=== PATIENT | female | born 2000 | race Caucasian/White ===

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

== ENCOUNTER 2022-01-23 12:01 | Emergency (ER) | payer OTHER ==
[~2022-01-23] VITALS: Ht 157.5 cm; Wt 85.3 kg
[~2022-01-23 12:01] MED LIST changes: +CEPH-588 PO; +NAPR-54 PO
[2022-01-23 12:05] VITALS: BP 136/67
--- NOTE | 2022-01-23 12:10 | NUR ---
Patient ambulated with steady gait to bed 2.
[2022-01-23] MEDS ORDERED: LACT-103 PO (12:48)
[2022-01-23] MEDS ORDERED: GLYPS RC (12:48)
--- NOTE | 2022-01-23 13:05 | NUR ---
22/F BIB SELF WITH C/O LOWER ABDOMINAL PAIN X1 WEEK, STATES SHE HAS BEEN CONSTIPATED, REPORTS TAKING OTC LAXATIVES BUT STATES SHE HAS NOT FOUND RELIEF. PT REPORTS LOW ABDOMEN PAIN 10/10, CRAMPING/INTERMITTENT, RADIATING TO LOW BACK. REPORTS NAUSEA, DENIES FEVERS, CHILLS, URINARY SYMPTOMS. PATIENT STATES LAST BOWEL MOVEMENT THIS MORNING "STEFANO/SOFT." REPORTS EXERCISING AND ADEQUATE FIBER INTAKE WITHOUT RELIEF TO SYMPTOMS. ABD SOFT/ROUND/NONTENDER. BED LOCKED IN LOWEST POSITION, SIDE RAILS X 1. MEDHX: ANXIETY MEDS: ZOLOFT ALLERGIES: NKA
--- NOTE | 2022-01-23 13:07 | NUR ---
Patient discharged with v/s stable. Written and verbal after care instructions given and explained about Constipation (Adult). Patient alert, oriented and verbalized understanding of instructions. Ambulatory with steady gait. All questions addressed prior to discharge. ID band removed. Patient advised to follow up with PMD. Rx of GLYCERIN, LACTUOLOSE given. Patient educated on indication of medication including possible reaction and side effects. Opportunity to ask questions provided and answered.
== END 2022-01-23 13:07 | disposition home or self-care (01) ==
LOC: MED 12:01
DX: K59.00 Constipation, unspecified (principal); Z79.899 Other long term (current) drug therapy
CPT/HCPCS: 81002; 81025; 99283

== ENCOUNTER 2022-05-23 23:38 | Emergency (ER) | payer OTHER ==
[~2022-05-23] VITALS: Ht 157.5 cm; Wt 77.1 kg
[~2022-05-23 23:38] MED LIST changes: +GLYPS RC; +LACT-103 PO
[2022-05-23 23:40] VITALS: BP 138/90
--- NOTE | 2022-05-23 23:43 | NUR ---
TO LOBBY A/W BED AMBULATORY
--- NOTE | 2022-05-24 00:14 | NUR ---
PT TAKEN TO BED 2
--- NOTE | 2022-05-24 00:52 | NUR ---
Dr. Lanier examining patient.
[2022-05-24] MEDS ORDERED: MIRABULK PO (01:06)
[2022-05-24] MEDS ORDERED: LACT10SO86 PO (01:06)
--- NOTE | 2022-05-24 01:13 | NUR ---
X-Ray at bedside.
[2022-05-24 01:18] LABS: APPEARANCE,URINE CLEAR (CLEAR); COLOR,URINE YELLOW (YELLOW)
[2022-05-24 01:19] LABS: BILIRUBIN,URINE NEGATIVE (NEGATIVE); BLOOD, URINE 1+ (NEGATIVE); LEUKOCYTE ESTERASE ,URINE NEGATIVE (NEGATIVE); NITRITE, URINE NEGATIVE (NEGATIVE); UGLUCOSE NEGATIVE (NEGATIVE)
[2022-05-24 01:20] LABS: RBC,URINE 0-5 /HPF (0-5); WBC,URINE 0-5 /HPF (0-5)
--- NOTE | 2022-05-24 02:22 | NUR ---
AT TIME OF DISCHARGE, PT REPORTS STILL HAVING ABDOMINAL AND FEELING THE NEED TO DEFACTE BUT CANNOT. DISCUSSED WITH PATIENT OPTION OF ENEMA. DR. SZYMANSKI MADE AWARE.
[2022-05-24] MEDS: SODIUM PHOSPHATE 118 ML ENEM RC ONE (02:28)
[2022-05-24 02:50] VITALS: BP 127/82
--- NOTE | 2022-05-24 02:50 | NUR ---
Patient discharged with v/s stable. Written and verbal after care instructions given and explained. Patient alert, oriented and verbalized understanding of instructions. Ambulatory with steady gait. All questions addressed prior to discharge. ID band removed. Patient advised to follow up with PMD. Rx of Miralax and Lactulose given. Patient educated on indication of medication including possible reaction and side effects. Opportunity to ask questions provided and answered.
== END 2022-05-24 02:50 | disposition home or self-care (01) ==
LOC: MED 23:38
DX: K59.00 Constipation, unspecified (principal); Z79.899 Other long term (current) drug therapy
CPT/HCPCS: 74018; 81001; 81025; 99284; Q0092

== ENCOUNTER 2022-11-12 08:38 | Emergency (ER) | payer OTHER ==
[~2022-11-12] VITALS: Ht 157.5 cm; Wt 78.0 kg
[~2022-11-12 08:38] MED LIST changes: +LACT10SO86 PO; +MIRABULK PO
[2022-11-12 08:43] VITALS: BP 140/92
--- NOTE | 2022-11-12 08:45 | NUR ---
22F PRESENTS TO ED WITH C/O LEFT ARM PAIN AND LEFT SHOULDER PAIN X 1DAY. PT REPORTS A CONSTANT, ACHING LIKE, 8/10 PAIN THAT STARTS ON LEFT ARM RADIATING TO LEFT SHOULDER. PT DENIES INJURY/TRAUMA, OR MED USE FOR PAIN.
[2022-11-12] MEDS ORDERED: LIDOCAINE 5% 1 EA PATCH TP ONE (09:05)
[2022-11-12] MEDS ORDERED: KETOROLAC 30 MG/ML VIAL IM ONE (09:05)
--- NOTE | 2022-11-12 10:51 | NUR ---
SLING APPLIED TO L ARM. + CMS
[2022-11-12] MEDS ORDERED: KETOROLAC 30 MG/ML VIAL ONE (11:13)
[2022-11-12] MEDS ORDERED: IBUP-2213 PO (11:19)
[2022-11-12] MEDS ORDERED: LID5T TP (11:21)
[2022-11-12 11:44] VITALS: BP 124/85
--- NOTE | 2022-11-12 11:44 | NUR ---
Patient discharged with v/s stable. Written and verbal after care instructions given and explained. Patient alert, oriented and verbalized understanding of instructions. Ambulatory with steady gait. All questions addressed prior to discharge. ID band removed. Patient advised to follow up with PMD. Rx of LIDOCAINE HYD AND IBUPROFEN given. Patient educated on indication of medication including possible reaction and side effects. Opportunity to ask questions provided and answered.
== END 2022-11-12 11:44 | disposition home or self-care (01) ==
LOC: MED 08:38
DX: M54.12 Radiculopathy, cervical region (principal)
CPT/HCPCS: 81025; 99283; J1885

== ENCOUNTER 2023-05-30 11:15 | Emergency (ER) | payer OTHER ==
[~2023-05-30] VITALS: Ht 157.5 cm; Wt 72.1 kg
[~2023-05-30 11:15] MED LIST changes: +IBUP-2213 PO; +LACT-85 PO; -LACT10SO86 PO; +LID5T TP
[2023-05-30 11:26] VITALS: BP 134/77; PULSE 56; RESP 18; TEMP 98.6; O2SAT 100
--- NOTE | 2023-05-30 11:30 | NUR ---
PT GIVEN URINE CUP AND WATER, RETURNED TO LOBBY AT THIS TIME
--- NOTE | 2023-05-30 13:00 | NUR ---
TO ER BED 4
--- NOTE | 2023-05-30 13:02 | NUR ---
PT TAKEN TO ULTRASOUND VIA WHEELCHAIR
--- NOTE | 2023-05-30 13:15 | NUR ---
PT BACK FROM RADIOLOGY
[2023-05-30 13:20] LABS: BASOPHILS # (AUTO) 0.1 K/uL (0.00-0.22); BASOPHILS % (AUTO) 0.6 % (0.0-2.0); EOSINOPHILS % (AUTO) 0.2 % (0.0-4.0); HEMATOCRIT 41.9 % (36-48); HEMOGLOBIN 14.4 g/dL (12.0-16.0); LYMPHOCYTES # (AUTO) 1.3 K/uL (2.5-16.5); LYMPHOCYTES % (AUTO) 15.6 % (20.5-51.1); MEAN CORPUSCULAR HEMOGLOBIN 33 pg (27-31); MEAN CORPUSCULAR HGB CONC 35 g/dL (33-37); MEAN CORPUSCULAR VOLUME 95.6 fL (80-94); MONOCYTES # (AUTO) 0.5 K/uL (0.8-1.0); MONOCYTES % (AUTO) 5.6 % (1.7-9.3); NEUTROPHILS # (AUTO) 6.5 K/uL (1.8-7.7); PLATELET COUNT (AUTO) 277 K/uL (140-450); RED BLOOD CELL COUNT(AUTO) 4.38 MIL/uL (4.20-5.40); RED CELL DISTRIBUTION WIDTH 13.5 % (11.6-13.7); WHITE BLOOD COUNT (AUTO) 8.3 K/uL (4.8-10.8)
--- NOTE | 2023-05-30 13:21 | NUR ---
DR. GANDARA IN TO SEE PT
[2023-05-30 13:52] VITALS: O2SAT 99
--- NOTE | 2023-05-30 13:58 | NUR ---
23 Y/0 FVPATIENT PRESENTS TO ED WITH ABD PAIN. PT STATES SHES HAD PAIN IN HER AB NON RADIATING, CRAMPING IN LOWER ABD. PT STATES SHES NAUSEATED, PT STAETS SHES TAKEN A TEST AND IT WAS POSITIVE. PT STATES SHE HAS RED COLORED STOOL WITH DIARREHA. PT STATES SHE HAS BEEN DRINKING AT [employer] AND [employer] PEN. PT SKIN IS PINK/WARM/DRY; AAOX4 WITH EVEN AND STEADY GAIT; LUNGS CLEAR BL; HR EVEN AND REGULAR; PT DENIES ANY FEVER, CP, SOB, OR COUGH AT THIS TIME; PATIENT STATES PAIN OF 10/10 AT THIS TIME; VSS; PATIENT POSITIONED FOR COMFORT; HOB ELEVATED; BEDRAILS UP X2; BED DOWN. CALL LIGHT WITH IN REACH. ER MADE AWARE OF PT STATUS. PMHX NONE NKA
--- NOTE | 2023-05-30 14:04 | NUR ---
PT STATES SHES NOT IN ANY PAIN AT THIS TIME.
[2023-05-30 14:36] LABS: APPEARANCE,URINE CLEAR (CLEAR); BILIRUBIN,URINE NEGATIVE (NEGATIVE); BLOOD, URINE TRACE-I (NEGATIVE); COLOR,URINE YELLOW (YELLOW); LEUKOCYTE ESTERASE ,URINE 1+ (NEGATIVE); NITRITE, URINE NEGATIVE (NEGATIVE); PH,URINE 7.5 (5.0-9.0); UGLUCOSE NEGATIVE (NEGATIVE)
[2023-05-30] MEDS ORDERED: NITR100C7 PO (15:06)
[2023-05-30] MEDS ORDERED: PNV91TAB8 PO (15:06)
[2023-05-30 15:15] VITALS: TEMP 98.6
--- NOTE | 2023-05-30 15:15 | NUR ---
Patient discharged with v/s stable. Written and verbal after care instructions given and explained. Patient alert, oriented and verbalized understanding of instructions. Ambulatory with steady gait. All questions addressed prior to discharge. ID band removed. Patient advised to follow up with PMD. Rx of MACROBID, (SENT) given. Patient educated on indication of medication including possible reaction and side effects. Opportunity to ask questions provided and answered. COPY OF LABS AND IMAGING GIVEN WORK NOTE GIVEN
[2023-05-30 15:19] VITALS: BP 117/79; PULSE 70; RESP 18; O2SAT 99
--- NOTE | 2023-05-30 15:19 | NUR ---
Note undone in EDM - 05/30/23 at 1520 by MEDPMR Patient discharged with v/s stable. Written and verbal after care instructions given and explained. Patient alert, oriented and verbalized understanding of instructions. Ambulatory with steady gait. All questions addressed prior to discharge. ID band removed. Patient advised to follow up with PMD. Rx of MACROBID, (SENT) given. Patient educated on indication of medication including possible reaction and side effects. Opportunity to ask questions provided and answered. COPY OF LABS AND IMAGING GIVEN WORK NOTE GIVEN
--- NOTE | 2023-05-30 15:20 | NUR ---
The patient's care was reviewed and supervised by Alicia Zuniga, RN, RN.
== END 2023-05-30 15:15 | disposition home or self-care (01) ==
LOC: MED 11:15
DX: O26.891 Other specified pregnancy related conditions, first trimester (principal); R10.30 Lower abdominal pain, unspecified; O20.0 Threatened abortion; O23.41 Unspecified infection of urinary tract in pregnancy, first trimester; O99.331 Smoking (tobacco) complicating pregnancy, first trimester; Z79.899 Other long term (current) drug therapy; Z79.1 Long term (current) use of non-steroidal anti-inflammatories (NSAID); Z79.2 Long term (current) use of antibiotics; Z3A.01 Less than 8 weeks gestation of pregnancy
CPT/HCPCS: 36415; 76817; 81001; 81025; 84702; 85025; 86900; 86901; 87086; 99285

== ENCOUNTER 2023-06-20 23:20 | Emergency (ER) | payer OTHER ==
[~2023-06-20] VITALS: Ht 157.5 cm; Wt 77.1 kg
[~2023-06-20 23:20] MED LIST changes: +NITR100C7 PO; +PNV91TAB8 PO
[2023-06-20 23:58] VITALS: BP 148/97; PULSE 120; RESP 20; TEMP 103.3; O2SAT 94
[2023-06-21] MEDS ORDERED: ACETAMINOPHEN EXTRA STRENGTH 500 MG TAB PO ONE (00:10)
[2023-06-21 00:54] LABS: FLU A ANTIGEN negative (NEGATIVE); FLU B ANTIGEN NEGATIVE (NEGATIVE)
== END 2023-06-21 01:15 | disposition left against medical advice (07) ==
LOC: MED 23:20
DX: R51.9 Headache, unspecified (principal); M54.50 Low back pain, unspecified; R68.83 Chills (without fever); Z53.21 Procedure and treatment not carried out due to patient leaving prior to being seen by health care provider; Z20.822 Contact with and (suspected) exposure to COVID-19
CPT/HCPCS: 99281